=== PATIENT | female | born 1960 | race Caucasian/White ===

== ENCOUNTER → 2023-01-01 | Outpatient (CLI) | payer OTHER, SELFPAY ==
--- NOTE | 2023-01-01 11:14 | NEURO ---
NCS and/or EMG Patient Report Ordering Doctor: Ronnie Melgar DATE OF SERVICE: 01/01/23 Patient complains of numbness and tingling in both hands for the past two years. She reports that it has progressively been worsening. Electrodiagnostic Findings: Left median motor nerve demonstrates prolonged distal latency with normal amplitude and reduced conduction velocity. Right median motor response could not be obtained. Left ulnar motor response is within normal limits, including conduction across the elbow. Normal right ulnar motor response. Prolonged left median F-wave. Absent right median F-wave. Prolonged left median sensory latency at the wrist. Absent right median sensory latency at the wrist. Prolonged palmar latency noted bilaterally in the median nerve distribution. Normal ulnar and radial sensory responses. Needle EMG testing was performed in the upper limbs. All muscles tested showed no evidence of denervation with normal motor unit action potentials. Electrodiagnostic impression: This is an abnormal study in the upper limbs 1. Electrodiagnostic findings suggestive of bilateral median mononeuropathy. This is consistent with a severe bilateral carpal tunnel syndrome. Multi Select Codes Neurology Neurology Interp Codes: 72827-82 Musc test done w/n test comp (interp) (2) and 87697-33 Nr cndj test 13/> studies (interp)
== END | disposition home or self-care (01) ==
PROVIDERS: PCP Family Medicine; Referring Provider Family Medicine; Visit Provider Family Medicine
DX: G56.03 Carpal tunnel syndrome, bilateral upper limbs (principal)
CPT/HCPCS: 95886; 95913